=== PATIENT | male | born 1945 | race Caucasian/White ===

== ENCOUNTER → 2016-11-23 10:20 | Outpatient (CLI) | payer MEDICARE | END | disposition home or self-care (01) | LOC: D.US 10:20 | DX: N39.0 Urinary tract infection, site not specified (principal) ==

== ENCOUNTER → 2016-12-22 15:10 | Outpatient (CLI) | payer MEDICARE ==
[2016-12-23 09:12] LABS: PSA - % FREE 13.1 % (()); PSA - FREE 0.59 ng/mL; PSA - TOTAL 4.5 ng/mL (0.0-4.0)
== END | disposition home or self-care (01) ==
LOC: D.RAD 15:00
PROVIDERS: Urology
DX: N20.0 Calculus of kidney (principal)

== ENCOUNTER 2017-01-25 06:30 | Day surgery (SDC) | payer MEDICARE ==
[2017-01-24 13:05] LABS: HEMATOCRIT 43.2 % (42.0-54.0); HEMOGLOBIN 14.6 g/dL (13.5-17.5); MCH 30.6 pg (26.0-34.0); MCHC 33.8 g/dL (31.0-37.0); MCV 90.6 fL (80.0-100.0); RBC 4.77 10x6/uL (4.20-6.10); RDW 13.7 % (11.5-14.5); WBC 5.3 10x3/uL (4.8-10.8)
[~2017-01-25] VITALS: Ht 188 cm; Wt 120.7 kg
[~2017-01-25 06:30] MED LIST: BACTRIM DS TABL1 TAB PO; FLOMAX0.4 MG PO; HYDROCODON-ACE1 EAC7 PO; HYTRIN5 MG PO; PAXIL20 MG PO; PRINIVIL20 MG PO; PROSCAR5 MG PO; TRAZODONE HCL50 MG PO
[2017-01-25 07:20] VITALS: BP 100/48; Ht 188 cm; Wt 120.7 kg
--- NOTE | 2017-01-25 11:41 | NUR ---
PATIENT'S PANIAGUA TAKEN OUT AND DR LANDERS PUT 180ML NACL IN BLADDER, DOING A VOIDING STUDY, NICOLAS.
--- NOTE | 2017-01-25 13:30 | NUR ---
VOIDED 75ML. DR LANDERS INFORMED, PANIAGUA PLACED WITH IMMEDIATE 400ML RETURN. LEG BAG PLACED ON. DR LANDERS VISITED WITH PATIENT AND STATES TO CHANGE TO LARGE DRAINAGE BAG AT NIGHT. [facility] CALLED FOR LARGE DRAINAGE BAG. IV REMOVED INTACT. DISCHARGE INSTRUCTIONS GIVEN.
--- NOTE | 2017-01-26 15:49 | OP ---
PATIENT NAME: GERONIMO DAUGHERTY MEDICAL RECORD: [id number] :43 LOCATION:D.[facility] ADMISSION DATE: SURGEON: JAY LANDERS MD DATE OF OPERATION: 01/25/2017 DATE OF SURGERY: 01/25/2017. SURGEON: Jay Landers MD. ANESTHESIA: MAC by Maxwell Seth CRNA. PREOPERATIVE DIAGNOSES: Elevated PSA 4.5, 13% free PSA. Urinary retention due to benign prostatic hypertrophy. PROCEDURE: Transrectal ultrasound and prostate biopsy, voiding trial. FINDINGS: 25 gram prostate, no hypoechoic areas. SPECIMENS: Prostate biopsy cores. ESTIMATED BLOOD LOSS: Minimal. CLINICAL HISTORY: This is a 71-year-old male with PSA of 4.5. Free PSA is 13%, which gives him about 35% chance statistically of having prostate cancer. In the interim, he has gone into urinary retention and he has an indwelling Stringer catheter. I started him on finasteride and tamsulosin. We are also going to be performing a voiding trial today after his prostate biopsy. For his prostate biopsy, he has taken several days of oral antibiotics. He has also had a Fleet Enema and a bowel movement. He was given Ancef and gentamicin IV client liaison to the OR. DESCRIPTION OF PROCEDURE: The patient was given IV sedation. He was placed into dorsal lithotomy position and prepped and draped. The ultrasound probe was placed into the rectum and measurements were taken of length, depth and width of the prostate and the prostate volume was calculated at 25 mL. The 6 sectors were outlined. There are 3 sectors on each side. There is apical, mid, and base sectors. We have left and right of each of these. Starting with the left apex, we took several cores of tissue with the biopsy needle. Once we had sufficient tissue, we then did the right apex and so on until all 6 sectors have been biopsied. At the end of the procedure, we filled his bladder with 180 mL of sterile saline. Stringer catheter was then removed. He will be brought to the recovery room. We will see if he can void today. If he can, he can go home without having a Stringer catheter inserted. If he cannot void, then we will have to put a Stringer catheter bag. TRANSINT:[id number] Voice Confirmation ID: [id number] DOCUMENT ID: [id number] OPERATIVE REPORT [id number] GERONIMO DAUGHERTY JAY LANDERS MD at 1549 CC: [id number] DICTATION DATE: 01/25/17 1135 APPLICATION SUPPORT ENGINEER: 01/25/170 [facility] 01/25/17 [id number] [place] [address]
== END 2017-01-25 14:30 | disposition home or self-care (01) ==
LOC: D.OPS 06:30 → D.PAN 09:00 → D.OPS 09:15
PROVIDERS: Anesthesiology
DX: C61 Malignant neoplasm of prostate (principal); R33.8 Other retention of urine

== ENCOUNTER → 2017-02-08 09:46 | Outpatient (CLI) | payer MEDICARE ==
[2017-01-25 07:20] VITALS: BMI 34.2
== END | disposition home or self-care (01) ==
LOC: D.NM 09:46
DX: C61 Malignant neoplasm of prostate (principal)

== ENCOUNTER 2017-05-03 13:14 | Inpatient (IN) | payer MEDICARE ==
[2017-05-03 14:10] VITALS: BP 101/53; BMI 33.9
--- NOTE | 2017-05-03 14:27 | NUR ---
PT ARRIVED FROM ADMISSIONS VIA WC. WITH PT. PT STATED HE HAD PROSTRATE SURGERY YESTERDAY AT [facility]. [address] WITH CLEAR URINE BLOOD TINGED AT TIMES. BLOODY DRAINAGE NOTED ON UNDERWEAR. URINE DRAINING IS CLEAR YELLOW. DRAINAGE BAG CONNECTED TO PANIAGUA. IV STARTED BY Zuly JEROME LPN ON [address] ST ATTEMPT WITH 22 GA IN LAC. SEE ASSESSMENT FOR FURTHER EVAL.
[2017-05-03 16:12] LABS: BASOPHILS 0.1 % (0-2); EOSINOPHILS 0.1 % (0-7); HEMATOCRIT 41.1 % (42.0-54.0); HEMOGLOBIN 13.8 g/dL (13.5-17.5); IMMATURE GRANULOCYTES 0.3 % (0-5); LYMPHOCYTES 2.3 % (15-50); MCH 30.7 pg (26.0-34.0); MCHC 33.6 g/dL (31.0-37.0); MCV 91.3 fL (80.0-100.0); MEAN PLATELET VOLUME 10.3 fL (7.4-10.4); MONOCYTES 4.2 % (2-11); PLATELET COUNT 170 10x3/uL (130-400); RDW 13.8 % (11.5-14.5); WBC 12.7 10x3/uL (4.8-10.8)
[2017-05-03 16:36] LABS: ANION GAP 11.5 mmol/L (8-16); CALCIUM 8.6 mg/dL (8.5-10.1); CARBON DIOXIDE 25.6 mmol/L (21.0-32.0); CREATININE - SERUM 2.2 mg/dL (0.6-1.3); POTASSIUM - SERUM 4.1 mmol/L (3.5-5.1)
--- NOTE | 2017-05-03 17:13 | HP ---
PATIENT: GERONIMO DAUGHERTY MEDICAL RECORD: [id number] ACCOUNT: [id number] LOCATION:[address] : 43 ADMISSION DATE: 05/03/17 HISTORY AND PHYSICAL EXAMINATION REASON FOR ADMISSION: Fever and chills. HISTORY OF PRESENT ILLNESS: The patient is a 71-year-old male recently diagnosed with [place] stage prostate cancer. Urology had referred him to [facility] for prostatectomy; however, he apparently had a prosthetic laser procedure done there yesterday. A Stringer was placed. He said he was given an antibiotic pill before hand. He felt fine all night and this morning, awoke at 5:00 with shaking chills and rigors. His temperature was 103 degrees Fahrenheit. He denied cough or abdominal pain. He had noticed blood in his Stringer bag. He came to our office for this reason. At this time, he is alert, oriented and is mildly hypotensive with a pressure of 90/60 and urine shows pyuria, bacteriuria and hematuria. I am concerned he may have urosepsis from his procedure, he is being directly admitted to the hospital for this reason. He denies any recent cough, vomiting, or diarrhea. PAST MEDICAL HISTORY: Longstanding history of BPH, was recently diagnosed with [place] stage prostate cancer, history of lumbar disc disease with chronic low back pain, chronic sciatica, hypertension and depression due to the of his son. PAST SURGICAL HISTORY: Otherwise, negative except for prostate biopsy and laser procedure. ALLERGIES: ASPIRIN. FAMILY HISTORY: Father of stroke. Mother of stroke and heart failure. Two sisters and brother in good health. 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 He is a nonsmoker, nondrinker of alcohol. His son committed suicide a year and a half ago and he has been dealing with depression from that standpoint. CURRENT MEDICATIONS: Vicodin, hydrocodone 5/325 one p.o. b.i.d. for back pain, Paxil 20 mg a day, Ativan 1 mg q.6 p.r.n. anxiety, Hytrin 5 mg daily and lisinopril 20 mg a day. REVIEW OF SYSTEMS: GENERAL: He felt well until this morning. He has had rigors, fever and chills. HEENT: No recent visual change, sinus congestion, or sore throat. He does have difficulty hearing, wears hearing aids. Denies sore throat. RESPIRATORY: No SOB or cough. CARDIAC: No chest pain, palpitations, or claudication. GASTROINTESTINAL: No nausea, vomiting. No change in stools or blood per rectum. GENITOURINARY: Denies dysuria after his procedure. Prior to that, was having nocturia 3 times nightly. ENDOCRINE: Denies polyuria, polydipsia, heat or cold intolerance. NEUROLOGIC: No history of stroke, TIA, or vascular headaches. INTEGUMENT: No rash or itching. HISTORY AND PHYSICAL [id number] GERONIMO DAUGHERTY PSYCHIATRIC: Admits depressed mood, but no suicidal thoughts. PHYSICAL EXAMINATION: GENERAL: The patient is alert and oriented, appears mildly ill. VITAL SIGNS: Temperature is 100 degrees Fahrenheit orally, heart rate is 90 and regular, respirations 18 and blood pressure is 90/60. HEENT: Normocephalic. Eyes are clear. Mucous membranes showed dry mucosa. NECK: Supple. CHEST: No wheeze or rales. HEART: Tachycardic without murmur. ABDOMEN: Soft, nontender. GENITOURINARY: Shows Stringer in place, blood in urinary bag. EXTREMITIES: Trace pretibial edema bilaterally. NEUROLOGIC: He is oriented to person, place, and time. Cranial nerves intact. Gait is normal. INTEGUMENT: Has scattered seborrheic keratoses on his chest. No petechiae appreciated. LABORATORY DATA: Stat urine does show 10-15 white cells, moderate bacteria and 20-30 red cells. ASSESSMENT: Probable urosepsis, recent laser TUR, prostate cancer, hypertension, now hypotensive, history of depression, chronic back pain, lumbar disc disease. PLAN: The patient will be directly admitted for fluid challenge, IV antibiotics and broad-spectrum including blood and urine cultures. Further workup to follow. TRANSINT:[id number] Voice Confirmation ID: [id number] DOCUMENT ID: [id number] JAQUAN DE LA CRUZ MD at 1713 CC: [id number] DICTATION DATE: 05/03/17 1233 PRESIDENT FINANCIAL INSTITUTION: 05/03/17 1339 ADM IN [id number] [place] [address]
--- NOTE | 2017-05-03 18:37 | NUR ---
PATIENT RESTING WELL IN BED WITH CALL LIGHT IN REACH, SPOUSE IS AT BEDSIDE. DENIES ANY NEEDS AT THIS TIME.
--- NOTE | 2017-05-03 19:22 | NUR ---
PT RESTING IN BED. 500ML/HR OF NS INFUSING TO LEFT AC ORDERED. PT IS CANTWELL. AT BEDSIDE. PT DENIES ANY NEEDS. NO S/S OF DISTRESS. WILL CPOC
[2017-05-03 20:00] VITALS: BP 116/54
--- NOTE | 2017-05-03 21:44 | NUR ---
PT RESTING IN BED. TEMP IS 101.8 ORAL. TYLENOL GIVEN ORDERED. PT DENIES ANY PAIN AT THIS TIME. D5NS INFUSING AT 125 TO LEFT AC ORDERED. PT UP TO RESTROOM WITH ASSIST. DENIES ANY COMPLICATIONS. BLOOD NOTED ON FOLLEY INSERTION SITE, PT DENIES ANY NEEDS. NO S/S OF DISTRESS. WILL CPOC
[2017-05-04 04:00] VITALS: BP 104/47
[2017-05-04 06:42] LABS: BASOPHILS 0.1 % (0-2); EOSINOPHILS 0.8 % (0-7); HEMATOCRIT 38.1 % (42.0-54.0); HEMOGLOBIN 12.6 g/dL (13.5-17.5); IMMATURE GRANULOCYTES 0.1 % (0-5); LYMPHOCYTES 5.9 % (15-50); MCH 30.1 pg (26.0-34.0); MCHC 33.1 g/dL (31.0-37.0); MCV 91.1 fL (80.0-100.0); MONOCYTES 6.3 % (2-11); NEUTROPHILS 86.8 % (40-80); PLATELET COUNT 143 10x3/uL (130-400); RBC 4.18 10x6/uL (4.20-6.10); RDW 14.2 % (11.5-14.5)
[2017-05-04 07:25] LABS: ANION GAP 10.1 mmol/L (8-16); CALCIUM 7.8 mg/dL (8.5-10.1); CARBON DIOXIDE 24.7 mmol/L (21.0-32.0); POTASSIUM - SERUM 3.8 mmol/L (3.5-5.1)
--- NOTE | 2017-05-04 07:27 | NUR ---
PT SITTING UP IN BED WITH AT BEDSIDE. TYPING OFFICE WORKER AT BEDSIDE TAKING VS. DENIES NEEDS WILL CONT TO MONITOR
[2017-05-04 07:30] LABS: CREATININE - SERUM 1.6 mg/dL (0.6-1.3)
[2017-05-04 08:57] VITALS: BP 101/51
[2017-05-04 12:12] VITALS: BP 123/66
[2017-05-04 13:47] VITALS: BMI 34.1
[2017-05-04 14:03] LABS: APPEARANCE SLT CLOUDY (CLEAR); BILIRUBIN NEGATIVE (NEGATIVE); COLOR YELLOW (YELLOW); GLUCOSE NEGATIVE (NEGATIVE); KETONE NEGATIVE (NEGATIVE); NITRITE NEGATIVE (NEGATIVE); PROTEIN TRACE mg/dL (NEGATIVE); UROBILINOGEN NORMAL (NORMAL)
[2017-05-04 14:04] LABS: BACTERIA MODERATE /hpf (NONE SEEN); MUCUS <1+ /lpf (NONE SEEN); WHITE CELLS - URINE >50 /hpf (0-5)
[2017-05-04 15:47] VITALS: BP 121/66
[2017-05-04 19:00] VITALS: BP 138/63
--- NOTE | 2017-05-04 20:12 | NUR ---
Patient is alert and resting in bed watching tv, spouse is at bedside. IV in left AC with fluids running. Call light in reach, denies needs or pain at this time.
[2017-05-05] VITALS: BP 115/70
[2017-05-05 04:00] VITALS: BP 109/70
[2017-05-05 05:27] LABS: BASOPHILS 0.2 % (0-2); EOSINOPHILS 3.7 % (0-7); HEMOGLOBIN 12.8 g/dL (13.5-17.5); IMMATURE GRANULOCYTES 0.2 % (0-5); LYMPHOCYTES 17.6 % (15-50); MCH 30.1 pg (26.0-34.0); MCHC 32.8 g/dL (31.0-37.0); MCV 91.8 fL (80.0-100.0); MEAN PLATELET VOLUME 10.3 fL (7.4-10.4); MONOCYTES 10.5 % (2-11); NEUTROPHILS 67.8 % (40-80); PLATELET COUNT 138 10x3/uL (130-400); RBC 4.25 10x6/uL (4.20-6.10); RDW 14.2 % (11.5-14.5); WBC 6.2 10x3/uL (4.8-10.8)
--- NOTE | 2017-05-05 05:38 | NUR ---
Patient is sleeping well, spouse is at bedside. Call light within reach, IV patent with fluids running.
[2017-05-05 05:45] LABS: ANION GAP 9.4 mmol/L (8-16); CARBON DIOXIDE 24.7 mmol/L (21.0-32.0); CREATININE - SERUM 1.1 mg/dL (0.6-1.3); POTASSIUM - SERUM 4.1 mmol/L (3.5-5.1)
--- NOTE | 2017-05-05 07:37 | NUR ---
PT SITTING UP IN BED WATCHING TV, DENIES NEEDS. AT BEDSIDE ASLEEP. WILL CONT TO MONITOR
[2017-05-05 08:57] VITALS: BP 117/75
[2017-05-05 12:54] VITALS: BP 149/78
[2017-05-05 17:11] VITALS: BP 140/70
--- NOTE | 2017-05-05 17:14 | NUR ---
PT SITTING UP IN BED EATING DINNER WITH AT BEDSIDE BOTH DENY NEEDS, WILL CONT TO MONITOR
--- NOTE | 2017-05-05 20:00 | NUR ---
PT RESTING IN BED. ALERT/ORIENTED. AT BEDSIDE. D5NS @ 125ML/HR INFUSING TO LEFT A/C. PANIAGUA PATENT TO BEDSIDE DRAIN BAG. SEE ASSESSMENT, MONITOR AND CPOC.
[2017-05-05 21:09] VITALS: BP 144/77
[2017-05-06 01:02] VITALS: BP 136/70
[2017-05-06 05:12] VITALS: BP 121/69
[2017-05-06 05:54] LABS: BASOPHILS 0.2 % (0-2); EOSINOPHILS 5.4 % (0-7); HEMATOCRIT 38.9 % (42.0-54.0); HEMOGLOBIN 12.7 g/dL (13.5-17.5); IMMATURE GRANULOCYTES 0.2 % (0-5); LYMPHOCYTES 26.4 % (15-50); MCH 29.9 pg (26.0-34.0); MCHC 32.6 g/dL (31.0-37.0); MCV 91.5 fL (80.0-100.0); MEAN PLATELET VOLUME 10.5 fL (7.4-10.4); MONOCYTES 8.9 % (2-11); NEUTROPHILS 58.9 % (40-80); PLATELET COUNT 139 10x3/uL (130-400); RBC 4.25 10x6/uL (4.20-6.10); RDW 14.2 % (11.5-14.5); WBC 5.2 10x3/uL (4.8-10.8)
--- NOTE | 2017-05-06 06:03 | NUR ---
RESTING IN BED WITH NO DISTRESS. HAS BEEN AWAKE SINCE 429. NO NEEDS VOICED. UNEVENTFUL NIGHT. IVF INFUSING. AT BEDSIDE. CPOC.
[2017-05-06 06:17] LABS: CALC OSMOLALITY 282 mosm/kg (275-300); CALCIUM 8.6 mg/dL (8.5-10.1); CHLORIDE - SERUM 110 mmol/L (98-107); GLUCOSE 199 mg/dL (74-106); POTASSIUM - SERUM 3.9 mmol/L (3.5-5.1); SODIUM 140 mmol/L (136-145); UREA NITROGEN 7 mg/dL (7-18); eGFR NON AFRICAN AMERICAN 78 mL/min (90-120)
[2017-05-06 08:00] VITALS: BP 136/74
[2017-05-06 12:00] VITALS: BP 125/74
--- NOTE | 2017-05-06 12:06 | NUR ---
ALERT AND ORIENTED X4. RESTING IN BED. DENIES SOB. PAIN MANAGEMENT CONTINUED. AT BEDSIDE. WORK ORDER PLACED FOR TV NOT WORKING. DENIES ANY NEEDS. BED LOCKED AND LOW. CALL LIGHT IN REACH. TWO SIDERAILS UP. RECIEVES LOVENOX INJ. NO SCDs. CHRONIC PANIAGUA DRAINING BY GRAVITY.
[2017-05-06 16:00] VITALS: BP 134/77
--- NOTE | 2017-05-06 17:31 | NUR ---
MOVE FROM ROOM 3 TO 2130 DUE TO TELEVISION NOT WORKING. INITIATE BLADDER TRAINING PER DOCTOR'S ORDER. EDUCATE PATIENT AND SPOUSE ON BLADDER TRAINING. DENIES ANY NEEDS. CONTINUE SAFETY PRECAUTIONS AND PLAN OF CARE.
[2017-05-06 19:00] VITALS: BP 141/78
--- NOTE | 2017-05-06 19:33 | NUR ---
ASSESSMENT COMPLETE, A&O. RESPERATIONS EVEN ON RA. IV TO LEFT AC WITH NS INFUSING AT 100 CC/HR. SITE CLEAN AND DRY. PANIAGUA CATH CURRENTLY CLAMPED FOR BLADDER TRAINING, INFORMED PT TO CALL WHEN HE FEELS THE URGE TO URINATE AND THE PANIAGUA CAN BE UNCLAMPED. PT DENIES PAIN OR NEEDS, BED LOW, CL IN REACH, AT BED SIDE.
--- NOTE | 2017-05-06 20:58 | NUR ---
HS MEDS GIVEN WITH FRESH ICE WATER, PANIAGUA UNCLAMPED TO DRAIN BLADDER AND RECLAMPED ORDERED. PT DENIES NEEDS, WILL CONT TO MONITOR.
--- NOTE | 2017-05-07 00:25 | NUR ---
RESTING WITH EYES CLOSED, RESPERATIONS EVEN, NO S/S DISTRESS NOTED. ASLEEP AT BED SIDE.
[2017-05-07 01:06] VITALS: BP 122/67
--- NOTE | 2017-05-07 04:07 | NUR ---
PROFESSOR OF ART AT BED SIDE TO OBTAIN VITALS.
[2017-05-07 04:27] VITALS: BP 120/64
[2017-05-07] MEDS ORDERED: CIPRO500 MG PO (08:07)
[2017-05-07 09:09] VITALS: BP 134/68
--- NOTE | 2017-05-07 10:59 | NUR ---
Patient Name: GERONIMO DAUGHERTY Admission Status: Urgent Accout number: [id number] Admission Date: 05-05-2017 : 1945 Admission Diagnosis: Attending: JAQUAN DE LA CRUZ Current LOS: 2 Anticipated DC Date: 05-07-2017 Planned Disposition: Home Primary Insurance: [facility] Discharge Planning Comments: * Is the patient Alert and Oriented? Yes 0 * How many steps to enter\exit or inside your home? RAMP 0 * PCP DR. DE LA CRUZ 0 * Pharmacy [facility] 0 * Preadmission Environment Home with Family 0 * ADLs Independent 0 * Equipment Other 0 * Other Equipment ELECT[employer]IC SCOOTER NO MEDICAL EQUIPMENT PROVIDER PREFERENCE 0 * List name and contact numbers for known caregivers / representatives who currently or will assist patient after discharge: MYLENE DAUGHERTY, 0 * Community resources currently utilized None 0 * Please name any agencies selected above. NONE 0 * Can the patient safely return to the preadmission environment? Yes 0 * Has this patient been hospitalized within the prior 30 days at any hospital? No 0 CM MET WITH PT AND SPOUSE IN ROOM TO DISCUSS DISCHARGE PLANNING AND NEEDS. PT REPORTS LIVING AT HOME INDEPENDENTLY WITH HIS SPOUSE. PT HAS A SCOOTER WITH NO MEDICAL EQUIPMENT PROVIDER PREFERENCE AND NO OUTSIDE SERVICES ASSISTING IN THE HOME. CM DISCUSSED AVAILABILITY OF HOME HEALTH, REHAB SERVICES AND MEDICAL EQUIPMENT. PT DENIES DISCHARGE NEEDS, REPORTS HIS SPOUSE IS HERE TO PICK HIM UP FOR DISCHARGE HOME. Cash Person: Tariq Britton
--- NOTE | 2017-05-07 12:00 | NUR ---
ALERT AND ORIENTED X4. RESTING IN BED. PANIAGUA BAG CHANGED TO LEG BAG PER DOCTOR'S ORDER. UNABLE TO CONTACT [facility] FOR UROLOGY APPT. ENCOURAGE SPOUSE TO CONTINUE TRYING TO REACH UROLOGIST. DC LT AC IV TIP INTACT. DISCHARGE INSTRUCTIONS GIVEN VERBALLY AND WRITTEN. DISCHARGE PAPERS SIGNED ON CHART. ESCORT TO RIDE VIA WHEELCHAIR. REMAINS FREE FROM INJURY.
== END 2017-05-07 16:35 | disposition home or self-care (01) | DRG 872 ==
LOC: D.M2 13:14
PROVIDERS: Family Medicine; ADMIT Family Medicine
DX: A41.9 Sepsis, unspecified organism (principal); N39.0 Urinary tract infection, site not specified; C61 Malignant neoplasm of prostate; I10 Essential (primary) hypertension; F32.9 Major depressive disorder, single episode, unspecified; M51.9 Unspecified thoracic, thoracolumbar and lumbosacral intervertebral disc disorder; I95.9 Hypotension, unspecified; N40.1 Benign prostatic hyperplasia with lower urinary tract symptoms

== ENCOUNTER → 2017-09-11 10:40 | Outpatient (CLI) | payer OTHER ==
[~2017-09-11 10:40] MED LIST changes: +CIPRO500 MG PO; +LISINOPRIL10 MG PO; +MAXIPIME 2 GM/D52 G1 IVPB; +TAMIFLU75 MG PO
== END | disposition home or self-care (01) ==
LOC: D.US 10:30
DX: N45.2 Orchitis (principal)

== ENCOUNTER 2017-09-16 08:36 | Inpatient (IN) | payer OTHER ==
[~2017-09-16] VITALS: Ht 188 cm; Wt 120.5 kg
--- NOTE | ~2017-09-16 | HP ---
PATIENT: GERONIMO DAUGHERTY MEDICAL RECORD: [id number] ACCOUNT: [id number] LOCATION:D.[facility] [address] : 43 ADMISSION DATE: 09/16/17 HISTORY AND PHYSICAL EXAMINATION : Fever with left testicular pain. HISTORY OF PRESENT ILLNESS: The patient is a 72-year-old male with [place] stage 4 prostate cancer. stated he was too old for prostatectomy. PAST MEDICAL HISTORY: . MEDICATIONS: 5/325 one b.i.d. p.r.n. pain, Ativan 1 mg q.6 hours p.r.n. anxiety, lisinopril 20 mg daily, trazodone 50 mg 1-2 at bedtime p.r.n. sleep. ALLERGIES: ASPIRIN. FAMILY HISTORY: Father of stroke. Mother of heart failure and stroke. Two sisters and brother is in good health. 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 He is nonsmoker, nondrinker. REVIEW OF SYSTEMS: GENERAL: He has felt fatigued for the last week or so, has had low-grade fever, fair appetite. HEENT: No recent visual change, sinus congestion. He does have chronic troubling hearing. RESPIRATORY: No SOB or cough. CARDIAC: No chest pain, palpitations or edema. GASTROINTESTINAL: No nausea, vomiting, change in stools or blood per rectum. GENITOURINARY: He has had urgency and foul smelling urine for the last week. He has noticed marked enlargement and tenderness in his left testicle. ENDOCRINE: Denies polyuria, polydipsia, heat or cold intolerance. NEUROLOGIC: No history of TIA, vascular headaches, stroke, or seizures. INTEGUMENT: No rash or itching. PSYCHIATRIC: Admits to depressed mood but not suicidal. PHYSICAL EXAMINATION: VITAL SIGNS: Temperature 100 degrees Fahrenheit orally. Weight is 264 pounds, BMI is 33.9, height is 6 feet 2 inches. Blood pressure of 132/82 and heart rate of 90. GENERAL: The patient appeared moderately ill. He is alert and oriented. HEENT: Eyes are clear. Oropharynx unremarkable. NECK: Supple. CHEST: Clear. HEART: Regular without murmur. ABDOMEN: Soft, nontender. RECTAL: Deferred. GENITOURINARY: His left testicle and scrotum was extremely tense and enlarged in size, tender to touch, does not transilluminate well. EXTREMITIES: No edema. HISTORY AND PHYSICAL [id number] GERONIMO DAUGHERTY MUSCULOSKELETAL: lumbar chronic . Negative SLR bilaterally. PSYCHIATRIC: He admits to mild depression, but no suicidal thoughts. Labs are currently pending except for UA, cultered pseudomonas of 100,000. Sensitive to cefepime and gentamicin. ASSESSMENT: 1. Pseudomonas UTI resistant. 2. Anselmo 4 prostate cancer. 3. Hypertension. 4. Chronic low back pain. 5. Depression. 6. Left orchitis. PLAN: The patient will be admitted for IV antibiotics and sepsis workup. TRANSINT:[id number] Voice Confirmation ID: [id number] DOCUMENT ID: [id number] JAQUAN DE LA CRUZ MD CC: [id number] DICTATION DATE: 09/15/171820 AUTOMOTIVE COLLISION REPAIR INSTRUCTOR: 09/16/17 022 ADM IN [id number] [place] [id number]
[~2017-09-16 08:36] MED LIST changes: -LISINOPRIL10 MG PO; -MAXIPIME 2 GM/D52 G1 IVPB; -TAMIFLU75 MG PO
[2017-09-16 10:18] LABS: BASOPHILS 0.2 % (0-2); EOSINOPHILS 3.6 % (0-7); HEMOGLOBIN 15.5 g/dL (13.5-17.5); IMMATURE GRANULOCYTES 0.5 % (0-5); LYMPHOCYTES 23.6 % (15-50); MCH 30.8 pg (26.0-34.0); MCHC 34.4 g/dL (31.0-37.0); MCV 89.5 fL (80.0-100.0); MEAN PLATELET VOLUME 9.6 fL (7.4-10.4); MONOCYTES 8.3 % (2-11); NEUTROPHILS 63.8 % (40-80); RBC 5.03 10x6/uL (4.20-6.10); RDW 13.2 % (11.5-14.5); WBC 9.4 10x3/uL (4.8-10.8)
[2017-09-16 10:19] LABS: PLATELET COUNT 249 10x3/uL (130-400)
[2017-09-16 10:28] VITALS: BP 124/79
[2017-09-16 10:28] LABS: ANION GAP 9.3 mmol/L (8-16); CALCIUM 9.5 mg/dL (8.5-10.1); CARBON DIOXIDE 28.8 mmol/L (21.0-32.0); CREATININE - SERUM 1.2 mg/dL (0.6-1.3); POTASSIUM - SERUM 4.1 mmol/L (3.5-5.1)
[2017-09-16 11:46] VITALS: BP 124/79
[2017-09-16 16:08] LABS: APPEARANCE HAZY (CLEAR); BILIRUBIN NEGATIVE (NEGATIVE); COLOR YELLOW (YELLOW); GLUCOSE NEGATIVE (NEGATIVE); KETONE NEGATIVE (NEGATIVE); NITRITE NEGATIVE (NEGATIVE); PH 7.5 (5.0-6.0); PROTEIN NEGATIVE (NEGATIVE); SPECIFIC GRAVITY 1.005 (1.005-1.020); UROBILINOGEN NORMAL (NORMAL)
[2017-09-16 20:00] VITALS: BP 138/74
[2017-09-17] VITALS: BP 118/58
[2017-09-17 04:00] VITALS: BP 108/58
[2017-09-17 09:26] VITALS: BP 135/69
[2017-09-17 12:44] VITALS: BP 157/77
[2017-09-17 16:45] VITALS: BP 125/76
[2017-09-17 19:01] VITALS: Ht 188 cm; Wt 120.5 kg
[2017-09-17 23:00] VITALS: BP 153/87
[2017-09-18 01:29] VITALS: BP 131/69
[2017-09-18 04:59] VITALS: BP 154/84
[2017-09-18 09:47] VITALS: BP 138/85
[2017-09-18 12:02] VITALS: BP 134/78
[2017-09-18 16:09] VITALS: BP 126/64
[2017-09-18 22:39] VITALS: BP 147/67
[2017-09-19 02:54] VITALS: BP 148/64
[2017-09-19 05:31] VITALS: BP 146/64
[2017-09-19 09:40] VITALS: BP 145/84
[2017-09-19 11:48] VITALS: BP 132/68
[2017-09-19 16:28] VITALS: BP 133/66
[2017-09-19 18:06] LABS: BASOPHILS 0.2 % (0-2); EOSINOPHILS 0.7 % (0-7); HEMOGLOBIN 13.9 g/dL (13.5-17.5); IMMATURE GRANULOCYTES 0.5 % (0-5); LYMPHOCYTES 6.3 % (15-50); MCH 30.5 pg (26.0-34.0); MCHC 33.9 g/dL (31.0-37.0); MCV 90.1 fL (80.0-100.0); MEAN PLATELET VOLUME 9.4 fL (7.4-10.4); MONOCYTES 8.1 % (2-11); NEUTROPHILS 84.2 % (40-80); RBC 4.55 10x6/uL (4.20-6.10); RDW 13.4 % (11.5-14.5); WBC 5.7 10x3/uL (4.8-10.8)
[2017-09-19 18:07] LABS: PLATELET COUNT 192 10x3/uL (130-400)
[2017-09-19 19:06] LABS: ERYTHROCYTE SEDIMENTATION RATE 22 mm/hr (0-20)
[2017-09-19 23:32] VITALS: BP 135/65
[2017-09-20 04:00] VITALS: BP 136/70
[2017-09-20 04:23] LABS: BASOPHILS 0.4 % (0-2); EOSINOPHILS 0.2 % (0-7); HEMATOCRIT 41.2 % (42.0-54.0); IMMATURE GRANULOCYTES 0.4 % (0-5); LYMPHOCYTES 14.7 % (15-50); MCH 30.5 pg (26.0-34.0); MCV 89.8 fL (80.0-100.0); MEAN PLATELET VOLUME 9.7 fL (7.4-10.4); MONOCYTES 10.3 % (2-11); PLATELET COUNT 219 10x3/uL (130-400); RBC 4.59 10x6/uL (4.20-6.10); RDW 13.5 % (11.5-14.5); WBC 4.6 10x3/uL (4.8-10.8)
[2017-09-20 05:49] LABS: ERYTHROCYTE SEDIMENTATION RATE 28 mm/hr (0-20)
[2017-09-20 09:02] VITALS: BP 111/64
[2017-09-20 12:24] VITALS: BP 102/62
[2017-09-20 16:21] VITALS: BP 118/68
[2017-09-20 21:39] VITALS: BP 126/73
[2017-09-21 00:15] VITALS: BP 120/53
[2017-09-21 04:00] VITALS: BP 131/74
[2017-09-21 05:47] LABS: BASOPHILS 0.3 % (0-2); EOSINOPHILS 0.8 % (0-7); HEMATOCRIT 40.3 % (42.0-54.0); HEMOGLOBIN 13.3 g/dL (13.5-17.5); IMMATURE GRANULOCYTES 0.3 % (0-5); LYMPHOCYTES 30.4 % (15-50); MCH 29.9 pg (26.0-34.0); MCV 90.6 fL (80.0-100.0); MEAN PLATELET VOLUME 10.1 fL (7.4-10.4); MONOCYTES 10.3 % (2-11); NEUTROPHILS 57.9 % (40-80); PLATELET COUNT 197 10x3/uL (130-400); RBC 4.45 10x6/uL (4.20-6.10); RDW 13.7 % (11.5-14.5); WBC 3.7 10x3/uL (4.8-10.8)
[2017-09-21 06:11] LABS: ANION GAP 9.7 mmol/L (8-16); CALCIUM 7.9 mg/dL (8.5-10.1); CREATININE - SERUM 1.1 mg/dL (0.6-1.3); POTASSIUM - SERUM 3.7 mmol/L (3.5-5.1)
[2017-09-21 08:55] VITALS: BP 104/58
[2017-09-21 13:01] VITALS: BP 123/69
[2017-09-21 16:31] VITALS: BP 119/68; BP 141/66
[2017-09-21 23:18] VITALS: BP 123/65
[2017-09-22 02:11] VITALS: BP 108/67
[2017-09-22 04:56] VITALS: BP 118/68
[2017-09-22 07:15] VITALS: BP 123/65
[2017-09-22] MEDS ORDERED: MAXIPIME 2 GM/D52 G1 IVPB (09:13)
[2017-09-22] MEDS ORDERED: LISINOPRIL10 MG PO (09:14)
[2017-09-22] MEDS ORDERED: TAMIFLU75 MG PO (09:14)
[2017-09-22 11:03] VITALS: BP 123/57
[2017-09-22 15:11] VITALS: BP 115/65
[2017-09-22 22:20] VITALS: BP 126/75
[2017-09-23 01:15] VITALS: BP 129/62
[2017-09-23 05:05] VITALS: BP 110/63
[2017-09-23 07:57] VITALS: BP 134/70
[2017-09-23 12:34] VITALS: BP 134/84
== END 2017-09-23 14:26 | disposition home health service (06) | DRG 728 ==
LOC: D.MS 08:36
PROVIDERS: Family Medicine; Student in an Organized Health Care Education/Training Program
DX: N45.3 Epididymo-orchitis (principal); N39.0 Urinary tract infection, site not specified; N13.8 Other obstructive and reflux uropathy; I82.411 Acute embolism and thrombosis of right femoral vein; B96.5 Pseudomonas (aeruginosa) (mallei) (pseudomallei) as the cause of diseases classified elsewhere; F41.9 Anxiety disorder, unspecified; R50.9 Fever, unspecified; C61 Malignant neoplasm of prostate; I10 Essential (primary) hypertension; N40.1 Benign prostatic hyperplasia with lower urinary tract symptoms; N43.3 Hydrocele, unspecified

== ENCOUNTER → 2017-09-25 13:44 | Outpatient (CLI) | payer OTHER ==
[~2017-09-25 13:44] MED LIST changes: +LISINOPRIL10 MG PO; +MAXIPIME 2 GM/D52 G1 IVPB; +TAMIFLU75 MG PO
[2017-09-25 13:51] LABS: BASOPHILS 0.2 % (0-2); EOSINOPHILS 2.2 % (0-7); HEMATOCRIT 41.1 % (42.0-54.0); HEMOGLOBIN 13.8 g/dL (13.5-17.5); IMMATURE GRANULOCYTES 0.2 % (0-5); LYMPHOCYTES 32.9 % (15-50); MCH 30.1 pg (26.0-34.0); MCHC 33.6 g/dL (31.0-37.0); MCV 89.7 fL (80.0-100.0); MEAN PLATELET VOLUME 10.6 fL (7.4-10.4); MONOCYTES 7.7 % (2-11); NEUTROPHILS 56.8 % (40-80); PLATELET COUNT 195 10x3/uL (130-400); RBC 4.58 10x6/uL (4.20-6.10); RDW 13.2 % (11.5-14.5); WBC 4.6 10x3/uL (4.8-10.8)
[2017-09-25 14:03] LABS: CREATININE - SERUM 0.9 mg/dL (0.6-1.3)
== END | disposition home or self-care (01) ==
LOC: D.LABREF 13:44
PROVIDERS: Student in an Organized Health Care Education/Training Program
DX: N45.2 Orchitis (principal)

== ENCOUNTER → 2017-10-01 15:24 | Outpatient (CLI) | payer OTHER ==
[2017-10-01 19:34] LABS: BASOPHILS 0.4 % (0-2); EOSINOPHILS 5.5 % (0-7); HEMATOCRIT 42.3 % (42.0-54.0); IMMATURE GRANULOCYTES 0.4 % (0-5); LYMPHOCYTES 30.6 % (15-50); MCH 29.8 pg (26.0-34.0); MCHC 33.1 g/dL (31.0-37.0); MEAN PLATELET VOLUME 11.1 fL (7.4-10.4); MONOCYTES 11.6 % (2-11); NEUTROPHILS 51.5 % (40-80); PLATELET COUNT 209 10x3/uL (130-400); WBC 5.7 10x3/uL (4.8-10.8)
== END | disposition home or self-care (01) ==
LOC: D.LABREF 15:24
PROVIDERS: Student in an Organized Health Care Education/Training Program
DX: N39.0 Urinary tract infection, site not specified (principal)

== ENCOUNTER → 2019-03-13 13:19 | Outpatient (CLI) | payer OTHER | END | disposition home or self-care (01) | LOC: D.MRI 13:19 | PROVIDERS: ATTEND Family Medicine | DX: M54.40 Lumbago with sciatica, unspecified side (principal) ==